=== PATIENT | female | born 1955 | race Caucasian/White ===

== ENCOUNTER 2018-12-23 05:26 | Outpatient (CLI) | payer MEDICARE, BC | END 2018-12-23 05:27 | disposition critical access hospital (66) | LOC: EMS 05:26 | PROVIDERS: ATTEND Surgery | DX: S89.92XA Unspecified injury of left lower leg, initial encounter (principal); W18.39XA Other fall on same level, initial encounter; Y92.009 Unspecified place in unspecified non-institutional (private) residence as the place of occurrence of the external cause | CPT/HCPCS: A0425; A0429 ==

== ENCOUNTER 2018-12-23 05:50 | Emergency (ER) | payer MEDICARE, BC ==
[2018-12-23] MEDS ORDERED: ACETAMINOPHEN 325 MG TABLET PO STA (05:57)
--- NOTE | 2018-12-23 05:58 | ED Physician Documentation ---
PD HPI LOWER EXT INJURY - Stated complaint Stated Complaint: GLF - Chief complaint Chief Complaint: Trauma Ext - History obtained from History obtained from: Patient, EMS - History of Present Illness PD HPI LOW EXT INJURY LOCATION: Left, Lower leg Type of injury: Fall (She typically has weakness on the left side from her prior stroke and walks with a cane or walker. And lost her balance and fell to the side, striking her lateral aspect of the left lower leg. There is bruising to the area. It is tender and hurts with walking. She called EMS to be brought in for evaluation for with concern of fracture. She denies injury to the head chest or belly.) Where injury occurred: Home Timing - onset: How many hours ago (1), Today Timing - details: Abrupt onset, Still present Worsened by: Moving, Palpating Associated symptoms: Swelling, Discolored (bruised quickly, with local swelling.). No: Weakness, Numbness Contributing factors: No: Anticoagulated Similar symptoms before: Has not had sx before Review of Systems Skin: denies: Abrasion (s), Laceration (s) Neurologic: denies: Focal weakness, Numbness, Headache, Head injury PD PAST MEDICAL HISTORY - Past Medical History Cardiovascular: [place] Neuro: CVA - Present Medications Home Medications: Ambulatory Orders Medication Instructions Recorded Confirmed Metoprolol Succinate 1 tab PO DAILY 12/23/18 12/23/18 Mycophenolate Sodium [Myfortic] 1 tab PO BID 12/23/18 12/23/18 Rosuvastatin Calcium [Crestor] 1 tab PO DAILY 12/23/18 12/23/18 Venlafaxine ER [Effexor ER] 1 cap PO DAILY 12/23/18 12/23/18 cycloSPORINE [Cyclosporine] 2 cap PO BID 12/23/18 12/23/18 glipiZIDE ER [Glucotrol Xl] 1 tab PO DAILY 12/23/18 12/23/18 raNITIdine [Zantac] 1 tab PO BID 12/23/18 12/23/18 - Allergies Allergies/Adverse Reactions: Allergies Allergy/AdvReac Type Severity Reaction Status Date / Time adhesive tape AdvReac Rash Verified 12/23/18 06:07 PD ED PE NORMAL - Vitals Vital signs reviewed: Yes - General General: Alert and oriented X 3, No acute distress, Well developed/nourished - HEENT HEENT: Atraumatic - Neck Neck: Supple, no meningeal sign, No bony TTP, No adenopathy - Derm Derm: Normal color, Warm and dry - Extremities Extremities: Other (The lateral aspect of the distal third of the fibula area has a localized swelling and hematoma without any abrasion or laceration. Both feet are dusky in color. She does have a dorsalis pedis this pulse present on exam on both feet. She has sensation present on the foot and lower leg. She is able to move it pretty well with slight weakness on the left side which she states is baseline from her prior stroke. There is no obvious bony deformity no crepitance.) - Neuro Neuro: Alert and oriented X 3, No sensory deficit, Normal speech Results - Vitals Vitals: Vital Signs - 24 hr 12/23/18 05:51 Temperature 37.4 C Heart Rate 81 Respiratory 14 Rate Blood Pressure 160/91 H O2 Saturation 100 Oxygen O2 Source Room air - Rads (name of study) left tib/fib Radiology: Prelim report reviewed, EMP read contemporaneously (no fractures), See rad report PD MEDICAL DECISION MAKING - ED course Complexity details: reviewed results, re-evaluated patient, considered differential, d/w patient Departure - Departure Disposition: 01 Home, Self Care Clinical Impression: Fall from slip, trip, or stumble Qualifiers: Encounter type: initial encounter Qualified Code(s): W01.0XXA - Fall on same level from slipping, tripping and stumbling without subsequent striking against object, initial encounter Contusion, lower leg Qualifiers: Encounter type: initial encounter Laterality: left Qualified Code(s): S80.12XA - Contusion of left lower leg, initial encounter Condition: Stable Record reviewed to determine appropriate education?: Yes Instructions: ED Contusion Lower Ext Follow-Up: Janice Robledo MD [Primary Care Provider] - Comments: Elevate rest and ice to the area periodically today and tomorrow. Use the Albaro wrap to help reduce swelling. Letter likely will be some bruising develop lower around the ankle and the foot over the next few days from that blood in the hematoma just leaching downward with gravity. Tylenol or ibuprofen if needed for pains.
--- NOTE | 2018-12-23 06:53 | XRAY Report ---
Reason: fell and struck mid/lower fibular area, with bruis Procedure Date: 12/23/2018 Accession Number: [id number] / [id number] Procedure: XR - Tib/Fib LT CPT Code: FULL RESULT: EXAM: LEFT TIBIA/FIBULA RADIOGRAPHY EXAM DATE: 12/23/2018 06:13 AM. CLINICAL HISTORY: Fell and struck mid/lower fibular area, with bruise. COMPARISON: None. TECHNIQUE: 2 views. FINDINGS: Bones: Osteopenia. No acute fracture seen. Joints: No dislocation. Joints appear fairly well-preserved as imaged. Soft Tissues: Soft tissue swelling. IMPRESSION: 1. Osteopenia. No acute fracture or dislocation seen. 2. Soft tissue swelling. RADIA
[2018-12-23 07:05] VITALS: BP 150/74
== END 2018-12-23 07:08 | disposition home or self-care (01) ==
LOC: EDUNIT# → ED 05:50
DX: S80.12XA Contusion of left lower leg, initial encounter (principal); W18.30XA Fall on same level, unspecified, initial encounter; Y93.F2 Activity, caregiving, lifting; Y92.009 Unspecified place in unspecified non-institutional (private) residence as the place of occurrence of the external cause; I69.354 Hemiplegia and hemiparesis following cerebral infarction affecting left non-dominant side
CPT/HCPCS: 73590; 99283; 99284; A9270

== ENCOUNTER 2019-03-29 06:12 | Emergency (ER) | payer MEDICARE, BC ==
[2019-03-29] MEDS ORDERED: BACITRACIN ZINC OINT 14 GM TOP STA (06:59)
--- NOTE | 2019-03-29 07:03 | ED Physician Documentation ---
PD HPI LOWER EXT INJURY - Stated complaint Stated Complaint: LEG LAC - Chief complaint Chief Complaint: Laceration - History obtained from History obtained from: Patient - History of Present Illness PD HPI LOW EXT INJURY LOCATION: Left, Lower leg Type of injury: Laceration Where injury occurred: Home Timing - onset: How many minutes ago (30) - Additional information Additional information: Meliton is a 63-year-old female with a history of stroke, renal transplant, and hearing deficit, who presents with large laceration to her left lower leg. She fell when getting out of bed this morning, cutting her leg on the bed frame. She denies any other injuries. She has been able to bear weight since the incident occurred. She is uncertain, but thinks she is up-to-date on her tetanus status. Review of Systems Constitutional: denies: Fever Ears: denies: Tinnitus/ringing Cardiac: denies: Chest pain / pressure Respiratory: denies: Dyspnea, Cough GI: denies: Abdominal Pain, Nausea, Vomiting Skin: reports: Laceration (s) (Left leg) Musculoskeletal: denies: Neck pain, Back pain Neurologic: denies: Headache, LOC PD PAST MEDICAL HISTORY - Past Medical History Cardiovascular: [place] Respiratory: None Neuro: CVA Endocrine/Autoimmune: Type 2 diabetes GI: GERD : Other HEENT: Chronic hearing loss Musculoskeletal: None Derm: None - Past Surgical History Past Surgical History: Yes - Present Medications Home Medications: Ambulatory Orders Medication Instructions Recorded Confirmed Metoprolol Succinate 1 tab PO DAILY 12/23/18 12/23/18 Mycophenolate Sodium [Myfortic] 1 tab PO BID 12/23/18 12/23/18 Rosuvastatin Calcium [Crestor] 1 tab PO DAILY 12/23/18 12/23/18 Venlafaxine ER [Effexor ER] 1 cap PO DAILY 12/23/18 12/23/18 cycloSPORINE [Cyclosporine] 2 cap PO BID 12/23/18 12/23/18 glipiZIDE ER [Glucotrol Xl] 1 tab PO DAILY 12/23/18 12/23/18 raNITIdine [Zantac] 1 tab PO BID 12/23/18 12/23/18 Aspirin 81 mg PO 03/29/19 03/29/19 - Allergies Allergies/Adverse Reactions: Allergies Allergy/AdvReac Type Severity Reaction Status Date / Time adhesive tape AdvReac Rash Verified 03/29/19 06:19 - Social History Does the pt smoke?: No Smoking Status: Never smoker Does the pt drink ETOH?: Yes Does the pt have substance abuse?: No - Immunizations Immunizations are current?: No Immunizations: Other immun current - POLST Patient has POLST: No PD ED PE NORMAL - Vitals Vital signs reviewed: Yes (Systolic hypertension) - General General: Alert and oriented X 3, Well developed/nourished, Other (Severe hearing deficit.) - HEENT HEENT: Atraumatic - Neck Neck: No bony TTP - Cardiac Cardiac: RRR - Respiratory Respiratory: No respiratory distress, Clear bilaterally - Abdomen Abdomen: Soft, Non tender - Back Back: No spinal TTP - Derm Derm: No rash - Extremities Extremities: No deformity, No edema, Other (10 cm deep laceration to the left lower leg at the posterior aspect of the calf. It is into the gastrocnemius muscle. Distal neurovascular is intact.) - Neuro Neuro: Alert and oriented X 3, No motor deficit (Left-sided weakness compared to right (not new).) Results - Vitals Vitals: Vital Signs - 24 hr 03/29/19 06:16 Temperature 36.4 C L Heart Rate 66 Respiratory 16 Rate Blood Pressure 158/88 H O2 Saturation 100 Oxygen O2 Source Room air Procedures - Laceration (location) left lower leg Length in cm: 10 Wound type: Curved, Flap Neurovascular status: Sensory intact, Motor intact, Vascular intact Tendon involvement: Tendon intact Anesthesia: Lidocaine 1% with epi Wound Preparation: Hibiclens, Irrigated copiously NS, Wound explored, To the base. No: FB identified Skin layer closure: Nylon, Interrupted, Size #-0 - enter number (4), Sutures - enter # (15) Other: Patient tolerated well, No complications, Neurovascular intact, Dressing applied, Tetanus UTD Complexity: Intermediate PD MEDICAL DECISION MAKING - ED course Complexity details: re-evaluated patient, considered differential, d/w patient, d/w family ED course: The patient's presentation is significant for a large laceration of the left lower leg, with undermining of the subcutaneous tissue layer. The gastrocnemius fascia is intact. Treatment in the emergency department included thorough irrigation of the wound after local anesthetic using 1% lidocaine with epinephrine. The wound was repaired with 4-0 nylon simple sutures. Antibiotic ointment and compression dressing was applied. I discussed with the patient and her the expected course of injury, appropriate wound care, timing for suture removal, as well as potentially worrisome signs or symptoms that should prompt reevaluation in the emergency department. Departure - Departure Disposition: 01 Home, Self Care Clinical Impression: Leg laceration Qualifiers: Encounter type: initial encounter Laterality: left Qualified Code(s): S81.812A - Laceration without foreign body, left lower leg, initial encounter Condition: Stable Instructions: ED Laceration Ext Sutr Stap Tape Follow-Up: Janice Robledo MD [Primary Care Provider] - Comments: Keep your left leg elevated as much of the time as possible. Clean the wound daily with warm soapy water, and apply a new antibiotic ointment daily. You can use Tylenol as needed for pain. Follow-up for suture removal in about 14 days. Return to the emergency department if you develop any sign of infection, or otherwise worsening symptoms.
[2019-03-29 07:30] VITALS: BP 153/90
== END 2019-03-29 07:30 | disposition home or self-care (01) ==
LOC: ED 06:12
DX: S81.812A Laceration without foreign body, left lower leg, initial encounter (principal); W06.XXXA Fall from bed, initial encounter; Y92.003 Bedroom of unspecified non-institutional (private) residence as the place of occurrence of the external cause; I69.354 Hemiplegia and hemiparesis following cerebral infarction affecting left non-dominant side; Z94.0 Kidney transplant status; H91.90 Unspecified hearing loss, unspecified ear; E11.9 Type 2 diabetes mellitus without complications; Z79.84 Long term (current) use of oral hypoglycemic drugs; Z79.82 Long term (current) use of aspirin
CPT/HCPCS: 12034; 99282; 99283; A9270

== ENCOUNTER 2019-04-13 15:03 | Emergency (ER) | payer MEDICARE, BC ==
[2019-04-13 15:10] VITALS: BP 139/67
--- NOTE | 2019-04-13 15:23 | ED Physician Documentation ---
PD HPI LOWER EXT INJURY - Stated complaint Stated Complaint: STITCH REMOVAL - Chief complaint Chief Complaint: Wound - History obtained from History obtained from: Patient - History of Present Illness PD HPI LOW EXT INJURY LOCATION: Right (She is 15 days out from a lower extremity wound that was sutured here. She is a renal transplant patient. Spent a little red the whole time but no fevers. No pain except when she is moving.) Review of Systems Constitutional: reports: Reviewed and negative Cardiac: reports: Reviewed and negative Respiratory: reports: Reviewed and negative PD PAST MEDICAL HISTORY - Past Medical History Cardiovascular: [place] Respiratory: None Neuro: CVA Endocrine/Autoimmune: Type 2 diabetes GI: GERD : Other HEENT: Chronic hearing loss Musculoskeletal: None Derm: None - Past Surgical History Past Surgical History: Yes - Present Medications Home Medications: Ambulatory Orders Medication Instructions Recorded Confirmed Metoprolol Succinate 1 tab PO DAILY 12/23/18 12/23/18 Mycophenolate Sodium [Myfortic] 1 tab PO BID 12/23/18 12/23/18 Rosuvastatin Calcium [Crestor] 1 tab PO DAILY 12/23/18 12/23/18 Venlafaxine ER [Effexor ER] 1 cap PO DAILY 12/23/18 12/23/18 cycloSPORINE [Cyclosporine] 2 cap PO BID 12/23/18 12/23/18 glipiZIDE ER [Glucotrol Xl] 1 tab PO DAILY 12/23/18 12/23/18 raNITIdine [Zantac] 1 tab PO BID 12/23/18 12/23/18 Aspirin 81 mg PO 03/29/19 03/29/19 Cephalexin [Keflex] 500 mg PO Q6H #28 capsule 04/13/19 - Allergies Allergies/Adverse Reactions: Allergies Allergy/AdvReac Type Severity Reaction Status Date / Time adhesive tape AdvReac Rash Verified 03/29/19 06:19 - Social History Does the pt smoke?: No Smoking Status: Never smoker Does the pt drink ETOH?: Yes Does the pt have substance abuse?: No - Immunizations Immunizations are current?: No Immunizations: Other immun current - POLST Patient has POLST: No PD ED PE NORMAL - Vitals Vital signs reviewed: Yes - General General: Alert and oriented X 3, No acute distress - Extremities Extremities: Other (There is a sutured wound on the calf, mild surrounding redness. All the sutures were removed during examination.) - Neuro Neuro: Alert and oriented X 3, Normal speech Results - Vitals Vitals: Vital Signs - 24 hr 04/13/19 15:08 Temperature 36 C L Heart Rate 60 Respiratory 18 Rate Blood Pressure 139/67 H O2 Saturation 100 Oxygen O2 Source Room air PD MEDICAL DECISION MAKING - ED course ED course: Sutured wound with mild cellulitis, the sutures were removed and she is placed on antibiotics. Departure - Departure Disposition: 01 Home, Self Care Clinical Impression: Visit for suture removal Condition: Good Record reviewed to determine appropriate education?: Yes Instructions: ED Wound Check Sutr Removal Infec Prescriptions: Cephalexin [Keflex] 500 mg PO Q6H #28 capsule Comments: Wound check with your doctor on Friday, return for new or worsening symptoms.
== END 2019-04-13 15:26 | disposition home or self-care (01) ==
LOC: ED 15:03
DX: S81.812D Laceration without foreign body, left lower leg, subsequent encounter (principal); L03.116 Cellulitis of left lower limb; X58.XXXD Exposure to other specified factors, subsequent encounter; Z94.0 Kidney transplant status; E11.9 Type 2 diabetes mellitus without complications; Z79.84 Long term (current) use of oral hypoglycemic drugs; Z79.82 Long term (current) use of aspirin
CPT/HCPCS: 99281; 99282

== ENCOUNTER 2019-11-22 13:17 | Emergency (ER) | payer MEDICARE, BC ==
[2019-11-22 14:22] LABS: BASOPHILS % (AUTO) 0.3 %; EOSINOPHILS % (AUTO) 0.1 %; HGB - HEMOGLOBIN 15.5 g/dL (12.0-16.0); LYMPHOCYTES # (AUTO) 1.9 10^3/uL (1.5-3.5); LYMPHOCYTES % (AUTO) 17.2 %; MEAN CORPUSCULAR HEMOGLOBIN 29.1 pg (27.0-31.0); MEAN CORPUSCULAR HGB CONC 32.8 g/dL (32.0-36.0); MEAN CORPUSCULAR VOLUME 88.7 fL (81.0-99.0); MEAN PLATELET VOLUME 11.5 fL (7.9-10.8); MONOCYTES # (AUTO) 0.8 10^3/uL (0.0-1.0); MONOCYTES % (AUTO) 7.2 %; NEUTROPHILS # (AUTO) 8.3 10^3/uL (1.5-6.6); NEUTROPHILS % (AUTO) 74.7 %; PLT - PLATELET COUNT 294 10^3/uL (130-450); RED BLOOD COUNT 5.33 10^6/uL (4.20-5.40); WHITE BLOOD COUNT 11.1 x10^3/uL (4.8-10.8)
[2019-11-22 14:35] LABS: ALBUMIN 3.6 g/dL (3.2-5.5); ALBUMIN/GLOBULIN RATIO 0.8 (1.0-2.2); BILIRUBIN,TOTAL 1.2 mg/dL (0.2-1.0); CALCIUM 8.9 mg/dL (8.5-10.3); CREATININE 1.6 mg/dL (0.4-1.0); TOTAL PROTEIN 8.1 g/dL (6.7-8.2)
[2019-11-22] MEDS ORDERED: SODIUM CHLORIDE 0.9% 1,000 ML IV ONE ×2 (14:47)
[2019-11-22] MEDS ORDERED: PROPARACAINE 0.5% OPHTH DROPS 15 ML EACHEYE STA (14:59)
--- NOTE | 2019-11-22 15:11 | ED Physician Documentation ---
History of Present Illness - Stated complaint Stated Complaint: WEAK/FACIAL SWELLING - Chief complaint Chief Complaint: Heent - History obtained from History obtained from: Patient - History of Present Illness Timing: How many weeks ago (2) Pain level max: 0 Pain level now: 0 - Additonal information Additional information: 64-year-old female with a history of a renal transplant presents to the emergency department with drainage from the right eye for the past week. She states she has been scratching her face and now has a rash on her face as well. She has not been checking her blood sugars at home. Nothing makes it better or worse. She is diabetic. No vomiting. No fever. Review of Systems Ten Systems: 10 systems reviewed and negative Constitutional: denies: Fever, Chills Cardiac: denies: Chest pain / pressure Respiratory: denies: Cough Skin: denies: Rash Musculoskeletal: denies: Neck pain, Back pain Neurologic: denies: Focal weakness, Numbness Psychiatric: denies: Insomnia PD PAST MEDICAL HISTORY - Past Medical History Cardiovascular: Hypertension, [place] Respiratory: None Neuro: CVA Endocrine/Autoimmune: Type 2 diabetes GI: GERD : Other HEENT: Chronic hearing loss Psych: None Musculoskeletal: None Derm: None Other Past Medical History: kidney transplant, 2012 - Past Surgical History Past Surgical History: Yes - Present Medications Home Medications: Ambulatory Orders Medication Instructions Recorded Confirmed Metoprolol Succinate 1 tab PO DAILY 12/23/18 12/23/18 Mycophenolate Sodium [Myfortic] 1 tab PO BID 12/23/18 12/23/18 Rosuvastatin Calcium [Crestor] 1 tab PO DAILY 12/23/18 12/23/18 Venlafaxine ER [Effexor ER] 1 cap PO DAILY 12/23/18 12/23/18 cycloSPORINE [Cyclosporine] 2 cap PO BID 12/23/18 12/23/18 glipiZIDE ER [Glucotrol Xl] 1 tab PO DAILY 12/23/18 12/23/18 raNITIdine [Zantac] 1 tab PO BID 12/23/18 12/23/18 Aspirin 81 mg PO 03/29/19 03/29/19 Cephalexin [Keflex] 500 mg PO Q6H #28 capsule 04/13/19 Cephalexin [Keflex] 500 mg PO Q6H #28 capsule 11/22/19 Polymyxin B/Trimeth Ophth Drop 1 drops RIGHTEYE Q3H 7 Days #1 11/22/19 [Polytrim Ophth Drops] bottle Valacyclovir HCl [Valacyclovir] 1,000 mg PO TID #30 tablet 11/22/19 - Allergies Allergies/Adverse Reactions: Allergies Allergy/AdvReac Type Severity Reaction Status Date / Time adhesive tape AdvReac Rash Verified 11/22/19 13:20 - Social History Does the pt smoke?: No Smoking Status: Never smoker Does the pt drink ETOH?: Yes Does the pt have substance abuse?: No - Immunizations Immunizations are current?: No Immunizations: Other immun current - POLST Patient has POLST: No PD ED PE NORMAL - Vitals Vital signs reviewed: Yes - General General: Alert and oriented X 3, No acute distress - HEENT HEENT: Moist mucous membranes, Other (Yellow drainage from the right eye. No fluorescein uptake. No visible dendrites. There is also an abrasion on the for ehead. Several excoriation hanks. Conjunctiva is very injected and erythematous.) - Neck Neck: Supple, no meningeal sign - Cardiac Cardiac: RRR - Respiratory Respiratory: No respiratory distress, Clear bilaterally - Abdomen Abdomen: Soft, Non tender, Non distended - Derm Derm: Warm and dry - Neuro Neuro: Alert and oriented X 3 - Psych Psych: Normal mood, Normal affect Results - Vitals Vitals: Vital Signs - 24 hr 11/22/19 11/22/19 11/22/19 13:20 14:26 16:00 Temperature 36.5 C 36.8 C Heart Rate 88 91 82 Respiratory 14 16 16 Rate Blood Pressure 150/82 H 160/95 H 155/88 H O2 Saturation 99 99 98 11/22/19 18:00 Temperature 36.9 C Heart Rate 72 Respiratory 14 Rate Blood Pressure 145/89 H O2 Saturation 99 Oxygen O2 Source Room air - Labs Labs: Laboratory Tests 11/22/19 11/22/19 11/22/19 14:15 14:15 14:15 WBC 11.1 H RBC 5.33 Hgb 15.5 Hct 47.3 H MCV 88.7 MCH 29.1 MCHC 32.8 RDW 13.0 Plt Count 294 MPV 11.5 H Neut # (Auto) 8.3 H Lymph # (Auto) 1.9 Coles # (Auto) 0.8 Eos # (Auto) 0.0 Baso # (Auto) 0.0 Absolute Nucleated RBC 0.00 Nucleated RBC % 0.0 VBG pH VBG pCO2 VBG pO2 VBG HCO3 VBG Total CO2 VBG O2 Saturation VBG Base Excess Sodium 128 L Potassium 4.2 Chloride 82 L Carbon Dioxide 21 Anion Gap 25.0 H BUN 32 H Creatinine 1.6 H Estimated GFR (MDRD) 32 L Glucose 436 H POC Whole Bld Glucose Calcium 8.9 Total Bilirubin 1.2 H AST 26 ALT 20 Alkaline Phosphatase 68 Total Protein 8.1 Albumin 3.6 Globulin 4.5 H Albumin/Globulin Ratio 0.8 L Lipase 49 Urine Color Urine Clarity Urine pH Ur Specific [place] Urine Protein Urine Glucose (UA) Urine Ketones Urine Occult Blood Urine Nitrite Urine Bilirubin Urine Urobilinogen Ur Leukocyte Esterase Urine RBC Urine WBC Ur Squamous Epith Cells Urine Bacteria Ur Microscopic Review Urine Culture Comments Serum Ketones SMALL H 11/22/19 11/22/19 11/22/19 15:05 17:11 17:21 WBC RBC Hgb Hct MCV MCH MCHC RDW Plt Count MPV Neut # (Auto) Lymph # (Auto) Coles # (Auto) Eos # (Auto) Baso # (Auto) Absolute Nucleated RBC Nucleated RBC % VBG pH 7.368 VBG pCO2 49.1 VBG pO2 25.4 VBG HCO3 27.6 VBG Total CO2 29.1 H VBG O2 Saturation 51.0 L VBG Base Excess 1.4 Sodium Potassium Chloride Carbon Dioxide Anion Gap BUN Creatinine Estimated GFR (MDRD) Glucose POC Whole Bld Glucose 307 H Calcium Total Bilirubin AST ALT Alkaline Phosphatase Total Protein Albumin Globulin Albumin/Globulin Ratio Lipase Urine Color YELLOW Urine Clarity CLEAR Urine pH 6.0 Ur Specific [place] 1.010 Urine Protein 30 H Urine Glucose (UA) >=1000 H Urine Ketones 40 H Urine Occult Blood TRACE-INTA Urine Nitrite NEGATIVE Urine Bilirubin NEGATIVE Urine Urobilinogen 0.2 (NORMAL) Ur Leukocyte Esterase NEGATIVE Urine RBC 0-5 Urine WBC 0-3 Ur Squamous Epith Cells MOD Squamous H Urine Bacteria None Seen Ur Microscopic Review INDICATED Urine Culture Comments NOT INDICATED Serum Ketones PD MEDICAL DECISION MAKING - ED course Complexity details: reviewed results, re-evaluated patient, considered differential, d/w patient ED course: Patient feels better after IV fluids, insulin and antibiotics. We will place her on ophthalmic antibiotics for the conjunctivitis. We will start her on antibiotics for the cellulitis of the forehead, possible zoster on the forehead as well, though no ocular dendrites. Does have macular degeneration in both of her eyes. We will have her follow-up closely with her doctor for further care. No evidence of DKA at this time. No altered mental status. Patient counseled regarding signs and symptoms for which I believe and urgent re-evaluation would be necessary. Patient with good understanding of and agreement to plan and is comfortable going home at this time This document was made in part using voice recognition software. While efforts are made to proofread this document, sound alike and grammatical errors may occur. Departure - Departure Disposition: Home, Self Care Clinical Impression: Hyperglycemia Conjunctivitis Qualifiers: Conjunctivitis type: acute Acute conjunctivitis type: bacterial Laterality: right Qualified Code(s): H10.31 - Unspecified acute conjunctivitis, right eye Cellulitis Qualifiers: Site of cellulitis: face Qualified Code(s): L03.211 - Cellulitis of face Herpes zoster Qualifiers: Herpes zoster complications: without complications Qualified Code(s): B02.9 - Zoster without complications Condition: Good Instructions: ED Infec Skin Cellulitis, ED Conjunctivitis Bacterial, ED Shingles Follow-Up: your,doctor in 3 days [Other] Prescriptions: Cephalexin [Keflex] 500 mg PO Q6H #28 capsule Polymyxin B/Trimeth Ophth Drop [Polytrim Ophth Drops] 1 drops RIGHTEYE Q3H 7 Days #1 bottle Valacyclovir HCl [Valacyclovir] 1,000 mg PO TID #30 tablet Comments: Take all antibiotics until gone. Return if you worsen. Use the medications as prescribed. Follow-up with your doctor within 3 days for a recheck. Discharge Date/Time: 11/22/19 18:11
[2019-11-22 15:21] LABS: VBG BASE EXCESS 1.4 mmol/L (-2 - +2); VBG PCO2 49.1 mmHg (41-51); VBG PH 7.368 (7.31-7.41); VBG PO2 25.4 mmHg (25-47); VBG TOTAL CO2 29.1 mmol/L (24-29)
[2019-11-22] MEDS ORDERED: valACYclovir 500 MG TABLET PO STA (15:50)
[2019-11-22] MEDS ORDERED: POLYMYXIN B/TRIMETH OPHTH DROPS RIGHTEYE STA (15:50)
[2019-11-22] MEDS ORDERED: INSULIN REGULAR HUMAN 100 UNIT/1 ML 10 ML MDV IVP STA (15:54)
[2019-11-22] MEDS ORDERED: cefTRIAXone 1 GM VIAL IVP STA (16:06)
[2019-11-22 17:29] LABS: BILIRUBIN,URINE NEGATIVE (NEGATIVE); CLARITY,URINE CLEAR (CLEAR); GLUCOSE, URINE (UA) >=1000 mg/dL (NEGATIVE); KETONES,URINE (UA) 40 mg/dL (NEGATIVE); LEUKOCYTE ESTERASE, URINE NEGATIVE (NEGATIVE); NITRITE,URINE NEGATIVE (NEGATIVE); OCCULT BLOOD,URINE TRACE-INTA (NEGATIVE); PROTEIN,URINE 30 mg/dL (NEGATIVE); UROBILINOGEN,URINE 0.2 (NORMAL) E.U./dL (NORMAL)
[2019-11-22 17:37] LABS: BACTERIA,URINE None Seen /HPF (None Seen); RBC,URINE 0-5 /HPF (0-5); SQUAMOUS EPITHELIAL CELL,UR MOD Squamous (<= Few)
[2019-11-22 18:05] VITALS: BP 145/89
== END 2019-11-22 18:11 | disposition home or self-care (01) ==
LOC: ED 13:17
DX: H10.31 Unspecified acute conjunctivitis, right eye (principal); E11.65 Type 2 diabetes mellitus with hyperglycemia; L03.211 Cellulitis of face; B02.9 Zoster without complications; I12.9 Hypertensive chronic kidney disease with stage 1 through stage 4 chronic kidney disease, or unspecified chronic kidney disease; E11.22 Type 2 diabetes mellitus with diabetic chronic kidney disease; N18.9 Chronic kidney disease, unspecified; H35.30 Unspecified macular degeneration; Z94.0 Kidney transplant status; Z79.84 Long term (current) use of oral hypoglycemic drugs
CPT/HCPCS: 36415; 80053; 81001; 82009; 82803; 83690; 85025; 96361; 96374; 99283; 99284; A9270; J1815; J3490; 81003; 87086